=== PATIENT | female | born 1955 | race Caucasian/White ===

== ENCOUNTER 2016-07-06 06:57 | Inpatient (IN) | payer OTHER ==
[~2016-07-06] VITALS: Ht 170.2 cm; Wt 60.2 kg
[~2016-07-06 06:57] MED LIST: ADVAIR 250/501 DISK IH; ADVAIR HFA120 INHALA IH; ALPRAZOLAM0.25 M2 PO; ASCORBIC ACID500 M1 PO; ATIVAN0.5 MG PO; AZITHROMYCIN500 M1 PO; Augmentin PO; BENZONATATE100 MG PO; BUSPAR10 MG PO; CALCIUM 500 MG1 EACH PO; CALCIUM GUMMIE1 EACH PO; CALCIUM500 M4 PO; CENTRUM SILVER1 EAC3 PO; CYANOCOBALAM1000 MCG PO; DAILY VITAMIN1 EAC4 PO; DALIRESP500 MCG PO; DuoNeb IH; FLONASE16 G1 BOTH NARES; GUMMI BEAR MUL1 EACH PO; HYDROCODON-ACE1 EAC7 PO; Habitrol,Nicoderm CQ TD; IBUPROFEN800 MG PO; LO-DOSE ASPIRIN81 M1 PO; MONTELUKAST SOD10 MG PO; MOTRIN800 MG PO; MUCINEX600 MG PO; NEXIUM20 MG PO; NEXIUM40 MG PO; NICOTINE PATCH1 EACH TD; PREDNISONE10 MG PO; PREDNISONE20 MG PO; PROAIR HFA8.5 GM IH; PROVENTIL,2.5 MG/3 M IH; PROVENTIL,200 INHALA IH; SPIRIVA1 INHALATI IH; SYMBICORT60 INHALAT IH; TYLENOL REGULA325 MG PO; VENTOLIN HFA18 GM IH; VITAMIN B-1250 MC2 PO; VITAMIN B-12500 MC3 PO; VITAMIN C250 M1 PO; VITAMIN D1000 INTUN PO; VITAMIN D32000 UNI1 PO; ZANTAC150 MG PO; ZITHROMAX Z-PA250 MG PO; ZOLOFT100 MG PO; ZOLOFT50 M1 PO; ZOLOFT50 MG PO; predniSONE PO
[2016-07-06 07:19] LABS: EOSINOPHIL (%) 3.2 % (0-5); EOSINOPHIL COUNT 0.2 K/uL (0-0.3); HEMATOCRIT 39.4 % (36.0-46.0); IMMATURE GRANULOCYTE (%) 0.2 % (0.0-0.7); INSTRUMENT ABS NEUTROPHIL CT 3.8 K/uL; LYMPHOCYTE COUNT 1.2 K/uL (1.0-2.8); MCH 30.5 PG (29.0-34.0); MCHC 32.2 G/DL (30.0-36.0); MCV 94.5 FL (83-99); MEAN PLAT.VOLUME 9.2 uM^3 (9.5-12.4); MONOCYTE (%) 16.1 % (3-12); NEUTROPHIL (%) 60.9 % (45-76); NEUTROPHIL COUNT 3.8 K/uL (1.8-6.4); PLATELET COUNT 317 K/uL (156-360); RBC DIS.WIDTH-CV 12.2 % (11.8-14.6); RBC DIS.WIDTH-SD 42.6 % (39-53); RED BLOOD COUNT 4.17 M/uL (3.80-5.20); WHITE BLOOD COUNT 6.2 K/uL (4.1-10.2)
[2016-07-06 07:28] LABS: CHLORIDE 109 mEq/L (99-109); POTASSIUM 4.3 mEq/L (3.7-5.4); SODIUM 142 mEq/L (136-147)
[2016-07-06 07:30] LABS: GLUCOSE 103 mg/dL (70-99)
[2016-07-06 07:31] LABS: ANION GAP 9 MEQ/L (2-14); PTT 27.6 (25-32)
[2016-07-06 07:34] LABS: GFR ESTIMATE (CALCULATED) > 59 mL/min/; UREA NITROGEN (BUN) 22 mg/dL (9-23)
[2016-07-06 07:41] LABS: TROP-I INTERPRETATION NEGATIVE; TROPONIN-I < 0.01 ng/mL (0.0-0.30)
[2016-07-06] MEDS ORDERED: PROVENTIL,2.5 MG/3 M IH (09:48)
[2016-07-06] MEDS ORDERED: REMERON30 M2 PO (09:51)
[2016-07-06] MEDS ORDERED: MOTRIN800 MG PO (09:51)
[2016-07-06 11:04] VITALS: BP 92/53
[2016-07-06 16:20] VITALS: BP 121/56
[2016-07-06 18:00] VITALS: BP 129/62
[2016-07-07] VITALS (7 sets, daily range): BP systolic 95–138; BP diastolic 51–87
[2016-07-08 04:35] VITALS: BP 134/64
[2016-07-08 08:37] VITALS: BP 129/60
[2016-07-08 11:50] VITALS: BP 133/72
[2016-07-08] MEDS ORDERED: BENZONATATE100 MG PO ×2 (14:30→15:02)
[2016-07-08] MEDS ORDERED: CEFTIN500 MG PO (14:30)
[2016-07-08] MEDS ORDERED: DOXYCYCLINE HY100 MG PO (14:30)
[2016-07-08] MEDS ORDERED: PREDNISONE10 MG PO (14:30)
== END 2016-07-08 15:47 | disposition home or self-care (01) | DRG 191 ==
LOC: EME → EDBD 06:57 → EDOF 09:37 → 5WEST 09:37 → EDOF 09:37 → 5WEST 10:58
PROVIDERS: Emergency Medicine
DX: J44.0 Chronic obstructive pulmonary disease with (acute) lower respiratory infection (principal); J96.10 Chronic respiratory failure, unspecified whether with hypoxia or hypercapnia; F33.9 Major depressive disorder, recurrent, unspecified; J20.9 Acute bronchitis, unspecified; K21.9 Gastro-esophageal reflux disease without esophagitis; I10 Essential (primary) hypertension; G47.33 Obstructive sleep apnea (adult) (pediatric); Z99.81 Dependence on supplemental oxygen; Z99.89 Dependence on other enabling machines and devices; Z87.891 Personal history of nicotine dependence
CPT/HCPCS: 71010; 71020; 80048; 83880; 84145 90; 84484; 85025; 85610; 85730; 93005; 94640; 94640 76; 94644; 94799; 99202; 99281; 99285; G0378; J1100; J1650; J2405; J2930; J7512; J7644

== ENCOUNTER 2016-07-15 15:02 | Emergency (ER) | payer OTHER ==
[~2016-07-15] VITALS: Ht 170.2 cm; Wt 61.4 kg
[~2016-07-15 15:02] MED LIST changes: +CEFTIN500 MG PO; +DOXYCYCLINE HY100 MG PO; +REMERON30 M2 PO
[2016-07-15] MEDS ORDERED: ASPIR 8181 M1 PO (15:09)
[2016-07-15] MEDS ORDERED: OMEPRAZOLE40 M1 PO (15:11)
[2016-07-15] MEDS ORDERED: PERCOCET 5/31 TABLET PO (16:19)
[2016-07-15] MEDS ORDERED: ROXICODONE5 MG PO (16:21)
[2016-07-15 17:18] VITALS: BP 168/89
== END 2016-07-15 17:20 | disposition home or self-care (01) ==
LOC: EME 15:02
DX: S52.501A Unspecified fracture of the lower end of right radius, initial encounter for closed fracture (principal); Z88.5 Allergy status to narcotic agent; Z88.8 Allergy status to other drugs, medicaments and biological substances; J44.9 Chronic obstructive pulmonary disease, unspecified
CPT/HCPCS: 73090; 73110; 99281; 99284; J2270; J3010

== ENCOUNTER 2017-01-11 20:11 | Inpatient (IN) | payer BC ==
[~2017-01-11] VITALS: Ht 170.2 cm; Wt 64.4 kg
[~2017-01-11 20:11] MED LIST changes: +ASPIR 8181 M1 PO; +OMEPRAZOLE40 M1 PO; +PERCOCET 5/31 TABLET PO; +ROXICODONE5 MG PO
[2017-01-11 21:03] LABS: HEMATOCRIT 35.8 % (36.0-46.0); MCH 31.2 PG (29.0-34.0); MCHC 33.2 G/DL (30.0-36.0); MCV 93.7 FL (83-99); MEAN PLAT.VOLUME 9.4 uM^3 (9.5-12.4); PLATELET COUNT 314 K/uL (156-360); RBC DIS.WIDTH-CV 12.7 % (11.8-14.6); RBC DIS.WIDTH-SD 43.9 % (39-53); RED BLOOD COUNT 3.82 M/uL (3.80-5.20); WHITE BLOOD COUNT 9.7 K/uL (4.1-10.2)
[2017-01-11 21:13] LABS: CHLORIDE 108 mEq/L (99-109); POTASSIUM 3.7 mEq/L (3.7-5.4); SODIUM 144 mEq/L (136-147)
[2017-01-11 21:15] LABS: GLUCOSE 140 mg/dL (70-99)
[2017-01-11 21:16] LABS: ANION GAP 12 MEQ/L (2-14)
[2017-01-11 21:18] LABS: GFR ESTIMATE (CALCULATED) > 59 mL/min/
[2017-01-11 21:19] LABS: UREA NITROGEN (BUN) 16 mg/dL (9-23)
[2017-01-11] MEDS ORDERED: DALIRESP500 MCG PO (22:54)
[2017-01-11] MEDS ORDERED: TYLENOL EXTRA500 MG PO (23:03)
[2017-01-12 03:53] LABS: POINT-OF-CARE METER ID UU13113717
[2017-01-12 04:10] VITALS: BP 152/70
[2017-01-12 04:32] LABS: TROP-I INTERPRETATION NEGATIVE; TROPONIN-I < 0.01 ng/mL (0.0-0.30)
[2017-01-12 07:16] VITALS: BP 124/71
[2017-01-12 10:59] LABS: TROP-I INTERPRETATION NEGATIVE; TROPONIN-I < 0.01 ng/mL (0.0-0.30)
[2017-01-12 11:55] LABS: POINT-OF-CARE METER ID UU14188625
[2017-01-12 15:16] VITALS: BP 107/67
[2017-01-12] MEDS ORDERED: ZOLOFT100 MG PO (21:02)
[2017-01-12 22:06] LABS: POINT-OF-CARE METER ID UU13113717
[2017-01-12 23:33] VITALS: BP 106/50
[2017-01-13 07:01] LABS: HEMATOCRIT 35.4 % (36.0-46.0); MCH 30.6 PG (29.0-34.0); MCHC 32.2 G/DL (30.0-36.0); MCV 95.2 FL (83-99); MEAN PLAT.VOLUME 9.7 uM^3 (9.5-12.4); PLATELET COUNT 312 K/uL (156-360); RBC DIS.WIDTH-CV 13.1 % (11.8-14.6); RBC DIS.WIDTH-SD 46.1 % (39-53); RED BLOOD COUNT 3.72 M/uL (3.80-5.20); WHITE BLOOD COUNT 13.6 K/uL (4.1-10.2)
[2017-01-13 07:09] VITALS: BP 125/59
[2017-01-13 07:28] LABS: ANION GAP 8 MEQ/L (2-14); CHLORIDE 107 MEQ/L (99-109); GFR ESTIMATE (CALCULATED) > 59 mL/min/; GLUCOSE 149 mg/dL (70-99); SAMPLE HEMOLYSIS CHECK 0; SAMPLE ICTERIC CHECK 0; SAMPLE LIPEMIA CHECK 0; SODIUM 142 MEQ/L (136-147); UREA NITROGEN (BUN) 22 mg/dL (9-23)
[2017-01-13 07:31] LABS: POTASSIUM 4.5 MEQ/L (3.7-5.4)
[2017-01-13 11:19] LABS: POINT-OF-CARE METER ID UU13113717
[2017-01-13 15:09] VITALS: BP 142/67
[2017-01-13 21:37] LABS: POINT-OF-CARE METER ID UU14174225
[2017-01-13 23:56] VITALS: BP 117/58
[2017-01-14 01:42] LABS: POINT-OF-CARE METER ID UU13113717
[2017-01-14 07:38] VITALS: BP 136/72
[2017-01-14 08:01] LABS: POINT-OF-CARE METER ID UU13113717
[2017-01-14] MEDS ORDERED: MUCINEX600 MG PO (09:34)
[2017-01-14] MEDS ORDERED: PREDNISONE10 MG PO (09:38)
[2017-01-14] MEDS ORDERED: ALPRAZOLAM0.25 M2 PO (09:38)
== END 2017-01-14 12:44 | disposition home or self-care (01) | DRG 191 ==
LOC: EME 20:11 → 5SOUTH 01-12 01:32 → EDOF 01-12 01:32 → ENRESERV 01-12 01:33 → 5SOUTH 01-12 03:12
PROVIDERS: Emergency Medicine; Hospitalist
DX: J44.0 Chronic obstructive pulmonary disease with (acute) lower respiratory infection (principal); J44.1 Chronic obstructive pulmonary disease with (acute) exacerbation; K21.9 Gastro-esophageal reflux disease without esophagitis; G47.33 Obstructive sleep apnea (adult) (pediatric); R07.9 Chest pain, unspecified; R00.0 Tachycardia, unspecified; R06.82 Tachypnea, not elsewhere classified; F41.9 Anxiety disorder, unspecified; J20.9 Acute bronchitis, unspecified; J96.10 Chronic respiratory failure, unspecified whether with hypoxia or hypercapnia; Z99.81 Dependence on supplemental oxygen; Z79.899 Other long term (current) drug therapy; Z85.41 Personal history of malignant neoplasm of cervix uteri; Z87.891 Personal history of nicotine dependence; Z85.3 Personal history of malignant neoplasm of breast; Z79.82 Long term (current) use of aspirin; Z79.51 Long term (current) use of inhaled steroids
CPT/HCPCS: 71020; 80048; 82948; 84484; 85027; 94640; 94640 76; 94668; 94799; 99202; 99281; 99285; J1100; J1644; J2060; J2930; J7030; J7512; J7644